=== PATIENT | female | born 1950 | race African-American/Black ===

== ENCOUNTER 2016-09-21 04:50 | Emergency (ER) ==
[2016-09-21 05:03] VITALS: BMI 35.9
[2016-09-21] MEDS ORDERED: NORFLEX IM STA (05:19)
[2016-09-21] MEDS ORDERED: TORADOL IM STA (05:19)
--- NOTE | 2016-09-21 05:51 | ED.PDOC ---
General ED Provider: Dr. ADRIENNE RUEDA Chief Complaint: Back Pain Stated Complaint: Patient is a 65 year old female who comes to the ER with complains of right lower back spasms that gradually started 2 days ago. She recently had Radiofrequecy ablasion for nerve pain and has good relief until then. Pain has gradually gotten worse culminating this morning. Painis worse with certain movement of spine. Took Diclophenac and a muscle relaxer at midnight. Time Seen by Physician: 05:00 Mode of Arrival: Walk-In Information Source: Patient Exam Limitations: No limitations Primary Care Provider: [facility] Nursing and Triage Documentation Reviewed and Agree: Yes Musculoskeletal Complaint Exam - Back Pain Complaint/Exam Mechanism of Injury: Reports: No known trauma Onset/Duration: 3 days Symptoms Are: Still present Timing: Constant Initial Severity: Moderate Current Severity: Severe Location: Reports: Discrete (right lower back ) Character: Reports: Aching, Throbbing, Spasmodic Aggravating: Reports: None Alleviating: Reports: None Associated Signs and Symptoms: Denies: Swelling, Redness, Bruising, Fever, Weakness, Numbness, Tingling, Abdominal pain, Flank pain, Bladder incontinence, Bowel incontinence, Weight loss, Pain with weight bearing Related History: Denies: Similar episode, Occupational injury, Previous back injury TAD Risk Factors: Reports: Hypertension AAA Risk Factors: Reports: None Cauda Equina Risk Factors: Reports: None Epidural Abcess Risk Factors: Reports: None Related Surgical History: Reports: None Focal Tenderness: Yes Paraspinal Muscle Tenderness: Yes Paraspinal Muscle Spasm: Yes Scoliosis: No Lordosis: No Kyphosis: No SLR Test: Right Negative, Left Negative Hip Motion Testing Pain: Right Negative, Left Negative Focal Weakness: Present: None Focal Sensory Loss: Present: None Gait: Present: Abnormal (due to pain ) Back Picture: 1 - pain and spasms Differential Diagnoses: Arthritis, Strain, Sprain Review of Systems - Review Of Systems Constitutional: Reports: No symptoms Eyes: Reports: No symptoms Ears, Nose, Mouth, Throat: Reports: No symptoms Respiratory: Reports: No symptoms Cardiac: Reports: No symptoms GI: Reports: No symptoms : Reports: No symptoms Musculoskeletal: Reports: Back pain, Muscle pain, Muscle stiffness Skin: Reports: No symptoms Neurological: Reports: Anxiety Endocrine: Reports: No symptoms Hematologic/Lymphatic: Reports: No symptoms All Other Systems: Reviewed and Negative Past Medical History - Past Medical History Previously Healthy: Yes Endocrine: Reports: None Cardiovascular: Reports: None Respiratory: Reports: None Hematological: Reports: None Gastrointestinal: Reports: None Genitourinary: Reports: None Neuro/Psych: Reports: None Musculoskeletal: Reports: Arthritis, Back Pain Cancer: Reports: None Last Menstrual Period: N/A - Surgical History General Surgical History: Reports: Hysterectomy, Orthopedic (Right knee replacement ) - Family History Family History: Reports: None - Social History Smoking Status: Never smoker Hx Substance Use: No Alcohol Screening: Occasionally - Immunizations Tetanus Shot up to Date: Yes Physical Exam - Physical Exam Appearance: Ill-appearing, Obese Ill-appearing: Mild Pain Distress: Severe Neck: Supple Respiratory: Airway patent, Breath sounds clear, Breath sounds equal, Respirations nonlabored Cardiovascular: RRR, Pulses normal, No rub, No murmur GI/: Soft, Nontender, No masses, Bowel sounds normal, No Organomegaly Musculoskeletal: Limited ROM Skin: Warm, Dry Neurological: Sensation intact, Motor intact, Reflexes intact, Alert, Oriented Psychiatric: Anxious Critical Care Note - Critical Care Note Total Time (mins): 0 Course - Course Orders, Labs, Meds: Orders Category Date Time Status Ketorolac Tromethamine [Toradol] MEDS 09/21/16 05:19 Discontinued 60 mg IM ONCE STA Orphenadrine Citrate [Norflex] MEDS 09/21/16 05:19 Discontinued 60 mg IM ONCE STA Medications Discontinued Medications Generic Name Dose Route Start Last Admin Trade Name Freq PRN Reason Stop Dose Admin Ketorolac Tromethamine 60 mg 09/21/16 05:19 09/21/16 05:33 Toradol IM 09/21/16 05:20 60 mg ONCE STA Administration Orphenadrine Citrate 60 mg 09/21/16 05:19 09/21/16 05:33 Norflex IM 09/21/16 05:20 60 mg ONCE STA Administration Vital Signs: Temp Pulse Resp BP Pulse Ox 09/21/16 04:50 97.7 F 76 20 129/86 96 Departure - Departure Time of Disposition: 06:30 Disposition: HOME SELF-CARE Discharge Problem: Back muscle spasm Instructions: Muscle Spasm (ED) Condition: Fair Pt referred to PMD for follow-up: Yes Additional Instructions: Continue pain medications as prescribed Follow up with PCP in 3 days Rest Prescriptions: Hydrocodone/Acetaminophen [C[place]on 5-325 Tablet] 1 tab PO Q6HR PRN #12 tablet PRN Reason: PAIN Allergies/Adverse Reactions: Allergies No Known Allergies Allergy (Verified 09/21/16 04:59) Home Medications: Ambulatory Orders Cholecalciferol (Vitamin D3) [Vitamin D] 2,000 unit PO DAILY 09/09/13 Omeprazole [Omeprazole] 40 mg PO EVERY OTHER DAY 09/09/13 Cetirizine HCl 10 mg PO DAILY 05/25/15 Diclofenac Sodium 75 mg PO BID 09/21/16 Hydrocodone/Acetaminophen [Cresson 5-325 Tablet] 1 tab PO Q6HR PRN #12 tablet 10/01 Methocarbamol 750 mg PO BID PRN 09/21/16 Disposition Discussed With: Patient, Family
[2016-09-21] MEDS ORDERED: NORCO 5-325 PO STA (06:08)
[2016-09-21 06:19] VITALS: TEMP 98.2
[2016-09-21 06:30] VITALS: BP 134/78
== END 2016-09-21 06:38 | disposition home or self-care (01) ==
LOC: ED 04:50
DX: M62.830 Muscle spasm of back (principal)
CPT/HCPCS: 96372; 99283

== ENCOUNTER 2017-02-21 13:10 | Outpatient (CLI) | END 2017-02-21 13:11 | disposition home or self-care (01) | LOC: LAB 13:10 | PROVIDERS: ATTEND Emergency Medicine | DX: J06.9 Acute upper respiratory infection, unspecified (principal) | CPT/HCPCS: 87651; 87880 ==

== ENCOUNTER 2017-02-26 11:02 | Outpatient (CLI) ==
--- NOTE | 2017-02-26 11:41 | DI ---
EXAM: Chest two views HISTORY: Cough COMPARISON: 02/27/2016 TECHNIQUE: Two views of the chest were performed FINDINGS: The lungs are clear. There is no pleural effusion or pneumothorax. The heart is normal i n size. The mediastinal contour is normal. There are no acute abnormalities of the bones. IMPRESSION: No acute cardiopulmonary process.
== END 2017-02-26 11:03 | disposition home or self-care (01) ==
LOC: RAD 11:02
PROVIDERS: ATTEND Family Medicine
DX: R05 Cough (principal)

== ENCOUNTER 2018-01-27 09:01 | Outpatient (CLI) | payer OTHER ==
--- NOTE | 2018-01-29 08:42 | MAMMO ---
EXAM: Bilateral digital screening mammogram (2-D and 3-D) History: Screening Comparison: Bilateral mammogram 01/23/2017 Findings: MLO and CC views of bilateral breasts demonstrate predominately fatty replaced breast pare nchyma. Tomosynthesis was performed. CAD was reviewed by the radiologist. There are no dominant mass es, no suspicious microcalcifications and no architectural distortions. Impression: Stable negative mammogram. Recommend followup routine screening mammography in 1 year. BIRADS 1
== END 2018-01-27 09:02 | disposition home or self-care (01) ==
LOC: RAD 09:01
PROVIDERS: ATTEND Family Medicine
DX: Z12.31 Encounter for screening mammogram for malignant neoplasm of breast (principal)

== ENCOUNTER 2018-02-28 13:00 | Outpatient (RCR) | END 2018-03-17 23:59 | PROVIDERS: ATTEND Physician Assistant | DX: S29.012D Strain of muscle and tendon of back wall of thorax, subsequent encounter (principal); M54.6 Pain in thoracic spine; G89.29 Other chronic pain; M62.81 Muscle weakness (generalized); M62.89 Other specified disorders of muscle ==